=== PATIENT | female | born 1965 | race Caucasian/White ===

== ENCOUNTER 2023-02-21 08:12 | Emergency (ER) | payer MEDICARE, SELFPAY ==
[2023-02-21 08:14] VITALS: BP 164/104; PULSE 82; RESP 18; TEMP 37.1; O2SAT 99; BMI 15.1
--- NOTE | 2023-02-21 09:07 | ED_ITS ---
HPI - General Adult General Chief complaint: Neck Injury/Pain Stated complaint: RT side of neck pain down arm Time Seen by Provider: 02/21/23 08:31 Source: patient Mode of arrival: ambulatory Limitations: no limitations History of Present Illness HPI narrative: 57-year-old female coming in today complaining of neck pain radiating all way down her right arm to her hand. This started about 2 2 and half to 3 days ago. Nothing makes the pain better or worse. Patient is on chronic narcotic therapy for chronic back pain, she states that her pain medications are not doing anything to alleviate this discomfort. She describes it as a shooting pain that goes again all the way down her hand. She states that involves the entire hand did not just 1 side of the hand. She denies any fevers or chills. She denies a ny trauma to the neck or arm this past weekend. She states that she was not doing any physical activity when this pain started. She denies any fevers or chills. No headache. Related Data Home Medications Medication Instructions Recorded Confirmed albuterol sulfate 90 mcg/actuation 1 - 2 puff inhalation Q4H PRN 02/21/2301/24 aerosol inhaler wheezing amlodipine 5 mg tablet 5 mg PO DAILY 02/21/23 02/21/23 buspirone 10 mg tablet 10 mg PO BID 02/21/23 02/21/23 hydrocodone 5 mg-acetaminophen 325 1 tab PO 3XD 02/21/23 02/21/23 mg tablet ibuprofen 800 mg tablet 800 mg PO 3XD PRN 02/21/23 02/21/23 metoprolol succinate 200 mg 200 mg PO DAILY 02/21/23 02/21/23 tablet,extended release 24 hr oxycodone-acetaminophen 5 mg-325 1 tab PO QPM 02/21/23 02/21/23 mg tablet trazodone 50 mg tablet mg PO 02/21/23 venlafaxine 75 mg capsule,extended 75 mg PO DAILY 02/21/23 02/21/23 release 24 hr Previous Rx's Medication Instructions Recorded methylprednisolone 4 mg tablets in See Rx Instructions PO .COMPLEX 02/21/23 a dose pack (Medrol (Rikki)) #21 ea Allergies Allergy/AdvReac Type Severity Reaction Status Date / Time No Known Drug Allergies Allergy Verified 02/21/23 08:25 Review of Systems Status of ROS: Reports: 10 or more systems reviewed and unremarkable except as noted in History and below [facility] Social History Smoking Status: Current every day smoker What tobacco products do you use: cigarettes Do you use any of these nicotine containing products: None How often do you have a drink containing alcohol: monthly or less How many standard drinks containing alcohol do you have on a typical day: 1 or 2 How often do you have six or more drinks on one occasion: Never AUDIT-C Alcohol total score: 1 Non-prescribed substance use: denies use Exam Narrative: Exam Narrative: Very thin patient , appears uncomfortable. Alert and oriented x3. Answers questions appropriately. Mood is irritated. Thoughts are goal oriented and rational. No tangential or magical thinking noted. Patient speaks in full sentences without needing to catch her breath. HEENT: Normocephalic atraumatic. Pupils are equally round reactive to light. Extraocular muscles are intact. Conjunctivae are moist without any icterus noted. Moist mucous membranes. Neck is soft without lymphadenopathy or thyromegaly noted. She has no acute tenderness to palpation over the cervical spine. Cardiovascular: Heart is regular rate and rhythm. Extremities: Upper extremities have normal strength. There are no abnormalities noted in the anatomy of the shoulders or arms. 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 Skin: Well perfused without any obvious rashes. Const: Vital Signs, click to edit/add: Vital Signs - 24 hr 02/21/23 08:14 Temperature 98.8 F Pulse Rate [Right Pulse Oximeter] 82 Respiratory Rate 18 Blood Pressure [Ri ght Upper Arm] 164/104 H Pulse Oximetry 99 Oxygen Delivery Me thod Room Air Course Vital Signs Vital signs: Initial Vital Signs Temperature 98.8 F 02/21/23 08:14 Temperature Source Temporal Artery Scan 02/21/23 08:14 Pulse Rate 82 02/21/23 08:14 Respiratory Rate 18 02/21/23 08:14 Blood Pressure 164/104 H 02/21/23 08:14 Blood Pressure Mean 124 H 02/21/23 08:14 Blood Pressure Position Sitting 02/21/23 08:14 Pulse Oximetry 99 02/21/23 08:14 Oxygen Delivery Method Room Air 02/21/23 08:14 Vital Signs Temperature 98.8 F 02/21/23 08:14 Pulse Rate 82 02/21/23 08:14 Respiratory Rate 18 02/21/23 08:14 Blood Pressure 164/104 H 02/21/23 08:14 Pulse Oximetry 99 02/21/23 08:14 Oxygen Delivery Method Room Air 02/21/23 08:14 Temperature 98.8 F 02/21/23 08:14 Pulse Rate 82 02/21/23 08:14 Respiratory Rate 18 02/21/23 08:14 Blood Pressure 164/104 H 02/21/23 08:14 Pulse Oximetry 99 02/21/23 08:14 Oxygen Delivery Method Room Air 02/21/23 08:14 Medical Decision Making MDM Narrative Medical decision making narrative: 57-year-old female with cervical radiculopathy. Differential diagnoses would include a mass in the cervical spine, herniated disc, abnormality of the brachial plexus. At this time will treat with a Medrol Dosepak. She can continue taking her home medications as prescribed. I do recommend she follow up with her primary care provider in about a week to discuss her symptoms and to discuss further management of her symptoms have not resolved. If she develops significant vomiting, neurologic deficits or fever I do recommend she return to the ER. Discharge Plan Discharge Clinical Impression: Cervical radiculopathy Patient Disposition: Home, Self-Care Condition: Stable Additional Instructions: Take all steroid as prescribed. Follow-up with your primary care provider in 1 week to discuss how your symptoms are doing and to discuss further management if needed. If you develop vomiting, fever or the inability to use your arm you should return to the ER. Prescriptions: New methylprednisolone [Medrol (Rikki)] 4 mg tablets,dose pack See Rx Instructions .ROUTE .COMPLEX Qty: 21 0RF Rx Instructions: orally per package directions No Action venlafaxine 75 mg capsule,extended release 24hr 75 mg PO DAILY trazodone 50 mg tablet PO ibuprofen 800 mg tablet 800 mg PO 3XD PRN hydrocodone-acetaminophen 5-325 mg tablet 1 tab PO 3XD metoprolol succinate 200 mg tablet extended release 24 hr 200 mg PO DAILY amlodipine 5 mg tablet 5 mg PO DAILY oxycodone-acetaminophen 5-325 mg tablet 1 tab PO QPM buspirone 10 mg tablet 10 mg PO BID albuterol sulfate 90 mcg/actuation HFA aerosol inhaler 1 - 2 puff INHALATION Q4H PRN (Reason: wheezing) Follow Up/Referrals: Mila Yuan PAMarlen [Primary Care Provider] - Stand Alone Forms: [employer] Info Instructions
[2023-02-21 09:21] VITALS: BP 164/104; PULSE 82; RESP 18; TEMP 37.1
== END 2023-02-21 09:26 | disposition home or self-care (01) ==
LOC: ED 09:25
PROVIDERS: Emergency Provider Family Medicine; PCP Physician Assistant Medical
DX: M54.12 Radiculopathy, cervical region (principal)
CPT/HCPCS: 99283